=== PATIENT | female | born 1955 | race Caucasian/White ===

== ENCOUNTER 2023-01-27 07:26 | Day surgery (SDC) | payer OTHER ==
[~2023-01-27] VITALS: Ht 152.4 cm; Wt 77.1 kg
[2023-01-27] MEDS ORDERED: LIDOCAINE 2% 100 MG/5 ML UJET TP ONE (08:45)
[2023-01-27] MEDS ORDERED: fentaNYL citrate 0.05 MG/ML VIAL ONE (08:45)
[2023-01-27] MEDS ORDERED: fentaNYL citrate 0.05 MG/ML VIAL IVP ONE (09:15)
== END 2023-01-27 10:12 | disposition home or self-care (01) ==
LOC: MOR 07:26 → MMU 07:28 → MOR 10:12
PROVIDERS: ATTEND Internal Medicine Gastroenterology
DX: K62.5 Hemorrhage of anus and rectum (principal); K57.30 Diverticulosis of large intestine without perforation or abscess without bleeding; K64.9 Unspecified hemorrhoids; R14.0 Abdominal distension (gaseous); I10 Essential (primary) hypertension; E05.90 Thyrotoxicosis, unspecified without thyrotoxic crisis or storm; Z90.49 Acquired absence of other specified parts of digestive tract; Z79.899 Other long term (current) drug therapy
CPT/HCPCS: 45378; J3010